=== PATIENT | female | born 1960 | race Caucasian/White ===

== ENCOUNTER 2019-03-02 11:19 | Emergency (ER) | payer OTHER ==
[~2019-03-02] VITALS: Ht 160 cm; Wt 51.7 kg
[~2019-03-02 11:19] MED LIST: ACYC800 PO; CYCL10 PO; ESTR1 PO; HERBS; HYDACE5 PO; LEVO750 PO; MELA3; OPTLUBOPOA OS; OXYACE5T PO; PRED20 PO; SULTRIDS PO; TRAZ100 PO
[2019-03-02] MEDS ORDERED: Prinivil10 MG PO (11:25)
[2019-03-02 11:50] LABS: BASOPHILS PERCENT AUTO 0 % (0-2); EOSINOPHILS PERCENT AUTO 0 % (0-6); Hematocrit 45.8 % (33.0-51.0); Hemoglobin 14.8 g/dL (11.5-16.0); IMMATURE GRAN ABSOLUTE AUTO 0.02 K/mm3 (0.00-0.10); IMMATURE GRAN PERCENT AUTO 0 % (0-1); LYMPHOCYTES PERCENT AUTO 13 % (21-46); MONOCYTES ABSOLUTE AUTO 0.36 K/mm3 (0.16-1.47); MONOCYTES PERCENT AUTO 5 % (4-13); Mean Corpuscular HGB 31.5 pg (26.0-34.0); Mean Corpuscular HGB Conc 32.3 g/dL (31.5-36.5); Mean Corpuscular Volume 97 fL (80-100); NEUTROPHILS ABSOLUTE AUTO 5.86 K/mm3 (1.96-9.15); NEUTROPHILS PERCENT AUTO 82 % (41-73); Platelet Count 247 K/mm3 (150-400); RDW Standard Deviation 43.6 fL (35.1-46.3); White Blood Cell Count 7.14 K/mm3 (4.00-11.30)
[2019-03-02] MEDS ORDERED: NP THYROID30 MG PO (12:08)
[2019-03-02] MEDS ORDERED: BUSP15 PO (12:09)
[2019-03-02] MEDS ORDERED: BACL10 PO (12:09)
[2019-03-02] MEDS ORDERED: Norco 10-325 T1 EACH PO (12:10)
[2019-03-02 12:17] LABS: Alanine Aminotransfer (ALT/SGP 20 U/L (12-78); Albumin, Blood 4.2 g/dL (3.4-5.0); Albumin/Globulin Ratio 1.1 (0.8-1.8); Alk Phos 65 U/L (50-136); Anion Gap 6 mmol/L (6-16); Aspartate Aminotrans (AST/SGOT 19 U/L (12-37); Bilirubin, Total 0.3 mg/dL (0.1-1.0); Blood Urea Nitrogen 11 mg/dL (8-24); Bun/Creatinine Ratio 19.3 (12.0-20.0); CO2, Blood 26 mmol/L (21-32); Calcium, Blood 8.9 mg/dL (8.5-10.1); Chloride, Blood 107 mmol/L (98-108); Creatinine, Blood 0.57 mg/dL (0.40-1.00); Globulin, Blood 3.7 g/dL (2.2-4.0); Glomerular Filtration Rate >60 (60-); Glucose, Blood 100 mg/dL (70-99); Magnesium, Blood 2.4 mg/dL (1.6-2.4); Potassium, Blood 4.2 mmol/L (3.5-5.5); Sodium, Blood 139 mmol/L (136-145); Total Protein, Blood 7.9 g/dL (6.4-8.2); Troponin I <0.015 ng/mL (0.000-0.040)
== END 2019-03-02 13:20 | disposition home or self-care (01) ==
LOC: ER 11:19
PROVIDERS: Physician Assistant
DX: R07.89 Other chest pain (principal); I10 Essential (primary) hypertension; F17.200 Nicotine dependence, unspecified, uncomplicated; Z79.899 Other long term (current) drug therapy
CPT/HCPCS: 36415; 71046; 80053; 83735; 83880; 84484; 85025; 93005; 93010

== ENCOUNTER 2019-10-28 07:08 | Emergency (ER) | payer OTHER ==
[~2019-10-28] VITALS: Ht 157.5 cm; Wt 49.4 kg
[~2019-10-28 07:08] MED LIST changes: +BACL10 PO; +BUSP15 PO; +LISI20 PO; +NP THYROID30 MG PO; +Norco 10-325 T1 EACH PO
[2019-10-28 07:44] LABS: BASOPHILS ABSOLUTE AUTO 0.01 K/mm3 (0.00-0.23); BASOPHILS PERCENT AUTO 0 % (0-2); EOSINOPHILS ABSOLUTE AUTO 0.13 K/mm3 (0.00-0.68); EOSINOPHILS PERCENT AUTO 2 % (0-6); Hemoglobin 14.4 g/dL (11.5-16.0); IMMATURE GRAN ABSOLUTE AUTO 0.02 K/mm3 (0.00-0.10); IMMATURE GRAN PERCENT AUTO 0 % (0-1); LYMPHOCYTES ABSOLUTE AUTO 1.96 K/mm3 (0.84-5.20); LYMPHOCYTES PERCENT AUTO 28 % (21-46); MONOCYTES ABSOLUTE AUTO 0.64 K/mm3 (0.16-1.47); MONOCYTES PERCENT AUTO 9 % (4-13); Mean Corpuscular HGB 31.6 pg (26.0-34.0); Mean Corpuscular Volume 99 fL (80-100); Mean Platelet Volume 10.1 fL (9.1-12.4); NEUTROPHILS ABSOLUTE AUTO 4.36 K/mm3 (1.96-9.15); NEUTROPHILS PERCENT AUTO 61 % (41-73); Platelet Count 194 K/mm3 (150-400); RDW Coefficient Variation 12.5 % (11.7-14.2); RDW Standard Deviation 45.8 fL (35.1-46.3); Red Blood Cell Count 4.55 M/mm3 (3.80-5.20); White Blood Cell Count 7.12 K/mm3 (4.00-11.30)
[2019-10-28 07:59] LABS: Alanine Aminotransfer (ALT/SGP 15 U/L (12-78); Albumin, Blood 4.2 g/dL (3.4-5.0); Albumin/Globulin Ratio 1.1 (0.8-1.8); Alk Phos 65 U/L (50-136); Anion Gap 3 mmol/L (6-16); Aspartate Aminotrans (AST/SGOT 20 U/L (12-37); Bilirubin, Total 0.2 mg/dL (0.1-1.0); Blood Urea Nitrogen 15 mg/dL (8-24); Bun/Creatinine Ratio 21.1 (12.0-20.0); CO2, Blood 31 mmol/L (21-32); Calcium, Blood 9.2 mg/dL (8.5-10.1); Chloride, Blood 103 mmol/L (98-108); Creatinine, Blood 0.71 mg/dL (0.40-1.00); Globulin, Blood 3.7 g/dL (2.2-4.0); Glomerular Filtration Rate >60 (60-); Glucose, Blood 90 mg/dL (70-99); Potassium, Blood 4.4 mmol/L (3.5-5.5); Sodium, Blood 137 mmol/L (136-145); Total Protein, Blood 7.9 g/dL (6.4-8.2); Troponin I <0.015 ng/mL (0.000-0.040)
[2019-10-28] MEDS ORDERED: IBUP600 PO (08:12)
[2019-10-29] MEDS ORDERED: Roxicodone5 MG PO (22:13)
== END 2019-10-28 08:25 | disposition home or self-care (01) ==
LOC: ER 07:08
PROVIDERS: Emergency Medicine
DX: R07.81 Pleurodynia (principal); F17.200 Nicotine dependence, unspecified, uncomplicated; Z79.899 Other long term (current) drug therapy
CPT/HCPCS: 36415; 71046; 80053; 84484; 85025; 85379; 93005; 93010; 96374; 99284-25; J1885

== ENCOUNTER 2019-10-29 20:10 | Emergency (ER) | payer OTHER ==
[~2019-10-29] VITALS: Ht 157.5 cm; Wt 49.4 kg
[~2019-10-29 20:10] MED LIST changes: +IBUP600 PO
[2019-10-29 21:05] LABS: BASOPHILS ABSOLUTE AUTO 0.01 K/mm3 (0.00-0.23); BASOPHILS PERCENT AUTO 0 % (0-2); EOSINOPHILS PERCENT AUTO 2 % (0-6); Hematocrit 43.4 % (33.0-51.0); Hemoglobin 13.8 g/dL (11.5-16.0); IMMATURE GRAN ABSOLUTE AUTO 0.03 K/mm3 (0.00-0.10); IMMATURE GRAN PERCENT AUTO 0 % (0-1); LYMPHOCYTES ABSOLUTE AUTO 1.47 K/mm3 (0.84-5.20); LYMPHOCYTES PERCENT AUTO 14 % (21-46); MONOCYTES PERCENT AUTO 7 % (4-13); Mean Corpuscular HGB 31.7 pg (26.0-34.0); Mean Corpuscular HGB Conc 31.8 g/dL (31.5-36.5); Mean Corpuscular Volume 100 fL (80-100); NEUTROPHILS ABSOLUTE AUTO 7.82 K/mm3 (1.96-9.15); NEUTROPHILS PERCENT AUTO 76 % (41-73); Platelet Count 248 K/mm3 (150-400); RDW Coefficient Variation 12.3 % (11.7-14.2); Red Blood Cell Count 4.35 M/mm3 (3.80-5.20); White Blood Cell Count 10.23 K/mm3 (4.00-11.30)
[2019-10-29 21:06] LABS: Source, Urine Catheter
[2019-10-29 21:09] LABS: Appearance, Urine Clear (Clear); Bilirubin, Urine Neg (Neg); Blood, Urine Neg (Neg); Color, Urine Yellow (P-Yellow); Glucose Qualitative, Urine Neg (Neg); Ketones, Urine 1+ (Neg); Leukocyte Esterase, Urine 1+ (Neg); Nitrite, Urine Neg (Neg); Protein, Urine 1+ (Neg); Urobilinogen, Urine NORM (Normal)
[2019-10-29 21:21] LABS: International Normalized Ratio 0.94
[2019-10-29 21:22] LABS: Alanine Aminotransfer (ALT/SGP 16 U/L (12-78); Albumin, Blood 4.2 g/dL (3.4-5.0); Albumin/Globulin Ratio 1.1 (0.8-1.8); Alk Phos 65 U/L (50-136); Anion Gap 4 mmol/L (6-16); Aspartate Aminotrans (AST/SGOT 19 U/L (12-37); Bilirubin, Total 0.3 mg/dL (0.1-1.0); Blood Urea Nitrogen 23 mg/dL (8-24); Bun/Creatinine Ratio 26.7 (12.0-20.0); CO2, Blood 31 mmol/L (21-32); Calcium, Blood 8.8 mg/dL (8.5-10.1); Chloride, Blood 104 mmol/L (98-108); Creatinine, Blood 0.86 mg/dL (0.40-1.00); Globulin, Blood 3.7 g/dL (2.2-4.0); Glomerular Filtration Rate >60 (60-); Glucose, Blood 91 mg/dL (70-99); Potassium, Blood 4.9 mmol/L (3.5-5.5); Sodium, Blood 139 mmol/L (136-145); Total Protein, Blood 7.9 g/dL (6.4-8.2)
[2019-10-29 21:28] LABS: Red Blood Cells, Urine Rare /hpf (0-2); Squamous Epithelial Cells Rare /hpf (Few)
[2019-10-29 21:29] LABS: Bacteria Few /hpf
[2019-10-29] MEDS ORDERED: Roxicodone5 MG PO (22:13)
[2019-10-29 22:58] LABS: Influenza A Negative (NEGATIVE); Influenza B Negative (NEGATIVE)
== END 2019-10-29 22:24 | disposition home or self-care (01) ==
LOC: ER 20:10
PROVIDERS: Physician Assistant
DX: R09.1 Pleurisy (principal); I10 Essential (primary) hypertension; J44.9 Chronic obstructive pulmonary disease, unspecified; E03.9 Hypothyroidism, unspecified; F17.210 Nicotine dependence, cigarettes, uncomplicated; Z79.899 Other long term (current) drug therapy
CPT/HCPCS: 36415; 71260; 80053; 81001; 83605; 85025; 85610; 85730; 87040; 87086; 87804; 93005; 93010; 96374-59; 96375-59; 99284-25; A9270; J1170; J1885; Q9967

== ENCOUNTER → 2019-11-17 | Outpatient (CLI) | payer OTHER ==
[~2019-11-17] MED LIST changes: +Roxicodone5 MG PO
[2019-11-18 13:26] LABS: Stool Occult Bld Immuno 1 Negative (NEGATIVE)
== END | disposition home or self-care (01) ==
LOC: LAB SHORT 09:00 → LAB 09:00
PROVIDERS: Nurse Practitioner Family
DX: Z12.11 Encounter for screening for malignant neoplasm of colon (principal)
CPT/HCPCS: G0328

== ENCOUNTER 2020-01-25 23:38 | Emergency (ER) | payer OTHER ==
[~2020-01-25] VITALS: Ht 162.6 cm; Wt 50.8 kg
== END 2020-01-26 01:55 | disposition left against medical advice (07) ==
LOC: ER 23:38
DX: Z53.21 Procedure and treatment not carried out due to patient leaving prior to being seen by health care provider (principal)

== ENCOUNTER 2020-04-20 22:07 | Emergency (ER) | payer OTHER ==
[~2020-04-20] VITALS: Ht 160 cm; Wt 53.5 kg
== END 2020-04-21 01:34 | disposition home or self-care (01) ==
LOC: ER 22:07
DX: R07.81 Pleurodynia (principal); I10 Essential (primary) hypertension; E03.9 Hypothyroidism, unspecified; F17.210 Nicotine dependence, cigarettes, uncomplicated; Z88.6 Allergy status to analgesic agent; Z79.899 Other long term (current) drug therapy
CPT/HCPCS: 96372; 99283; J1885

== ENCOUNTER → 2022-02-25 | Outpatient (CLI) | payer OTHER ==
[2022-02-25 15:43] LABS: Calcium, Urine <5.0 mg/dL (< 17.5); Calcium, Urine Calculation Unable to Calculate mg/24hrs (42.0-353.0)
[2022-02-25 15:47] LABS: Creatinine Urine 49.6 mg/dL (27.00-270.00)
== END ==
LOC: LAB SHORT 09:17 → LAB 09:17
PROVIDERS: Internal Medicine Endocrinology, Diabetes & Metabolism
DX: M81.0 Age-related osteoporosis without current pathological fracture (principal)
CPT/HCPCS: 81050; 82340; 82570

== ENCOUNTER 2023-10-28 14:19 | Inpatient (IN) | payer OTHER ==
[~2023-10-28] VITALS: Ht 157.5 cm; Wt 50.8 kg
[2023-10-28 14:55] LABS: BASOPHILS ABSOLUTE AUTO 0.01 K/mm3 (0.00-0.23); BASOPHILS PERCENT AUTO 0 % (0-2); EOSINOPHILS PERCENT AUTO 0 % (0-6); Hematocrit 41.7 % (33.0-51.0); Hemoglobin 13.1 g/dL (11.5-16.0); IMMATURE GRAN ABSOLUTE AUTO 0.05 K/mm3 (0.00-0.10); IMMATURE GRAN PERCENT AUTO 0 % (0-1); LYMPHOCYTES ABSOLUTE AUTO 0.48 K/mm3 (0.84-5.20); LYMPHOCYTES PERCENT AUTO 3 % (21-46); MONOCYTES ABSOLUTE AUTO 0.46 K/mm3 (0.16-1.47); MONOCYTES PERCENT AUTO 3 % (4-13); Mean Corpuscular HGB 31.9 pg (26.0-34.0); Mean Corpuscular HGB Conc 31.4 g/dL (31.5-36.5); Mean Corpuscular Volume 102 fL (80-100); Mean Platelet Volume 10.6 fL (9.1-12.4); NEUTROPHILS ABSOLUTE AUTO 14.66 K/mm3 (1.96-9.15); NEUTROPHILS PERCENT AUTO 94 % (41-73); Platelet Count 211 K/mm3 (150-400); RDW Coefficient Variation 13.3 % (11.7-14.2); RDW Standard Deviation 49.6 fL (35.1-46.3); Red Blood Cell Count 4.11 M/mm3 (3.80-5.20); White Blood Cell Count 15.66 K/mm3 (4.00-11.30)
[2023-10-28 15:13] LABS: Albumin, Blood 3.3 g/dL (3.4-5.0); Albumin/Globulin Ratio 0.7 (0.8-1.8); Bilirubin, Total 0.2 mg/dL (0.1-1.0); Bun/Creatinine Ratio 24.2 (12.0-20.0); Calcium, Blood 8.8 mg/dL (8.5-10.1); Creatinine, Blood 1.32 mg/dL (0.40-1.00); Globulin, Blood 4.6 g/dL (2.2-4.0); Potassium, Blood 3.3 mmol/L (3.5-5.5); Total Protein, Blood 7.9 g/dL (6.4-8.2)
[2023-10-28 17:17] LABS: Source, Urine Clean Catch
[2023-10-28 17:32] LABS: Appearance, Urine Cloudy (Clear); Bilirubin, Urine Neg (Neg); Blood, Urine 5+ (Neg); Color, Urine Yellow (P-Yellow); Glucose Qualitative, Urine Neg (Neg); Ketones, Urine Neg (Neg); Leukocyte Esterase, Urine 2+ (Neg); Nitrite, Urine Neg (Neg); Protein, Urine 2+ (Neg); Specific Gravity, Urine 1.015 (1.003-1.022); Urobilinogen, Urine NORM (Normal)
[2023-10-28 17:38] LABS: Base Excess Venous 2.1 mmol/L; Bicarbonate Venous 25.2 mmol/L (24.0-30.0); PCO2 Venous 62.5 mmHg (38-42)
[2023-10-28 17:39] LABS: pH Blood Venous 7.27 (7.34-7.37)
[2023-10-28 17:51] LABS: Red Blood Cells, Urine 25-50 /hpf (0-2)
[2023-10-28 17:52] LABS: Amorphous Mod (0-Heavy); Bacteria Many /hpf; Mucus Light (0-Heavy); Squamous Epithelial Cells Mod /hpf (Few); Transitional Epithelial Cells Rare /hpf (0-Rare)
[2023-10-28 18:05] LABS: Human Rhinovirus/Enterovirus Detected (NOT DETECT)
[2023-10-28 18:06] LABS: Adenovirus Not Detected (NOT DETECT); Bordetella pertussis Not Detected (NOT DETECT); Chlamydophila pneumoniae Not Detected (NOT DETECT); Coronavirus 229E Not Detected (NOT DETECT); Coronavirus HKU1 Not Detected (NOT DETECT); Coronavirus NL63 Not Detected (NOT DETECT); Coronavirus OC43 Not Detected (NOT DETECT); Human Metapneumovirus Not Detected (NOT DETECT); Influenza A/2009-H1 Not Detected (NOT DETECT); Influenza A/H1 Not Detected (NOT DETECT); Influenza A/H3 Not Detected (NOT DETECT); Influenza B Not Detected (NOT DETECT); Mycoplasma pneumoniae Not Detected (NOT DETECT); Parainfluenza Virus 1 Not Detected (NOT DETECT); Parainfluenza Virus 2 Not Detected (NOT DETECT); Parainfluenza Virus 3 Not Detected (NOT DETECT); Parainfluenza Virus 4 Not Detected (NOT DETECT); Respiratory Syncytial Virus Not Detected (NOT DETECT); SARS-Cov-2 (COVID-19), BioFire Not Detected (NOT DETECT)
[2023-10-28 18:35] LABS: Magnesium, Blood 2.6 mg/dL (1.6-2.4); Phosphorus, Blood 3.6 mg/dL (2.5-4.9)
[2023-10-28 20:45] VITALS: BP 120/55
[2023-10-29 00:15] VITALS: BP 133/60
[2023-10-29 03:00] VITALS: BP 116/64
--- NOTE | 2023-10-29 05:01 | NUR ---
END OF SHIFT NOTE: PT MORE ALERT THAN ON ARRIVAL TO PCU. IRRITABLE AT TIMES, NOT COOPERATIVE W/ MAJORITY OF CARE. ORIENTED X4. THIS RN HAS PROVIDED EXTENSIVE AMOUNTS OF EDUCATION REGARDING BIPAP ADHERENCE, IV K+ REPLACEMENT, AND OXYGEN SUPPLEMENTATION; PT HAS RAISED HER VOICE AT STAFF ON MULTIPLE OCCASIONS STATING: "GET THIS THING OUT OF MY ARM, NOW!" WHEN REFERRING TO HER IV, "THIS MASK IS SUFFOCATING ME, GET IT OFF MY FACE" WHEN REFERRING TO HER BIPAP MASK, "I HAVE NEVER BEEN THIS UNCOMFORTABLE IN THE HOSPITAL, EVER" W/ FOLLOW UP OF "MY WHOLE ARM IS BURNING, I'M SO COLD, AND I WANT THIS THING (MASK) OFF MY FACE." WHEN ADVISING THE PT THAT THIS RN DECREASED K+ INFUSION RATE AND IS CONCURRENTLY RUNNING W/ NS FOR COMFORT, PT ASKS "DID YOU ACTUALLY DO THAT OR ARE YOU JUST TELLING ME THAT YOU DID BUT YOU DIDN'T ACTUALLY?" THIS RN HAS CONTINUED TO EDUCATE PT, PROVIDE WARM BLANKETS, A HEATING PAD, ADJUST IV FOR COMFORT, AND POSITION PT PER HER REQUEST. VITAL SIGNS HAVE REMAINED STABLE SINCE ARRIVAL. HR 80-90 S, NSR ON TELE. BP STABLE, MAP >65. SPO2 >93% ON 3-5L VIA NC. PT INDEPENDENTLY REMOVES BIPAP, DESATS INTO MID-80'S W/O SUPPLEMENTAL O2; RECOVERS ONCE PLACED ON NC. PT W/ THICK, GREEN SPUTUM PRODUCTION; LOOSE, PRODUCTIVE COUGH. REMAINS AFEBRILE. PUREWICK IN PLACE FOR PT COMFORT DUE TO ALTERED MENTATION AND FREQUENT URINATION. NO BM'S THIS SHIFT. FREQUENT C/O BACK PAIN, REQUESTING HOME PAIN MEDICATION. WHEN EDUCATING PT ON ORDERS TO HOLD HOME PAIN MEDICATION, THIS RN DISCUSSED POTENTIAL OVERMEDICATION AT HOME PRIOR TO ARRIVAL TO URGENT CARE & ED. PT STATES "I MAY HAVE TAKEN AN EXTRA PILL BUT I STILL NEED PAIN MEDS. THEY DID NOT CAUSE ALL OF THIS." TYLENOL ADMINISTERED PER EMAR, HEATING PAD IN PLACE. PT PROVIDED W/ EXTRA PILLOWS FOR COMFORT. ABLE TO USE CALL LIGHT TO COMMUNICATE NEEDS. NO OTHER EVENTS. BED IN LOWEST POSITION, ALARM ON FOR PT SAFETY. WILL REPORT TO ONCOMING RN.
[2023-10-29 06:00] LABS: Bun/Creatinine Ratio 32.3 (12.0-20.0); Creatinine, Blood 0.46 mg/dL (0.40-1.00); Potassium, Blood 5.1 mmol/L (3.5-5.5)
--- NOTE | 2023-10-29 07:36 | NUR ---
AM ASSESSMENT PT IS A/O X'S 4, ANSWERS QUESTIONS APPROPRIATLY. O2 SAT 93% ON 3L O2 NC. PT LUNGS COARSE AND DIM IN BASES. PT REPORTS PRODUCTIVE COUGH. DENIES ANY INCREASE IN SOB OR CP. UNABLE TO TOLERATE BIPAP PER PT, TO MUCH FORCE. ALL OTHER VS STABLE.
[2023-10-29 07:38] VITALS: BP 122/57
--- NOTE | 2023-10-29 08:54 | NUR ---
PT UP TO CHAIR SBA FOR MULTIPLE LINES. O2 SAT REMAINED >88% ON 3L O2.
--- NOTE | 2023-10-29 09:50 | NUR ---
PT GIVEN FLUTTER VALVE EDUCATIN BY RT. PT DEMONSTRATED UNDERSTANDING TO THIS RN.
--- NOTE | 2023-10-29 12:22 | NUR ---
PT ASKED FOR HER PURSE, THIS RN NOTICED A THERMOSTATIC CONTROLS SUPERVISOR IN PURSE. RE-EDUCATED PT ON FIRE SAFETY AND IGNITION SOURCES AND THAT I WOULD NEED TO LOCK THERMOSTATIC CONTROLS SUPERVISOR UP UNTIL DC. PT COOPERATIVE AND GAVE RN TWO ADDITIONAL LIGHTERS, VAPE PEN AND PACK OF CIGARETTES. BELONGINGS WERE PLACED IN CLEAR PLASTIC BAG WITH PT LABLE ATTATCHED AND LOCKED IN DRAWER.
--- NOTE | 2023-10-29 13:28 | NUR ---
THIS NURSE RECIEVED REPORT FROM PCU NURSE TONY. AFTER REPORT THIS NURSE HAD NO FURTHER QUESTIONS. PATIENT CAME FROM U IN HER RECLINER CHAIR. SHE IS A&OX4. SHE IS ON 3L NC WITH >90% OXYGEN SATS. SHE HAS HER LEGS ELEVATED IN THE RECLINER AND CALL LIGHT WITHIN REACH.
--- NOTE | 2023-10-29 13:29 | NUR ---
PT TX TO ROOM 229 AT APROX 1329. REPORT GIVEN TO DEVIN JOY. IGNITION SOURCES LOCKED IN DRAWER.
--- NOTE | 2023-10-29 15:31 | NUR ---
SHIFT SUMMARY: PATIENT IS A&OX4. PATIENT CONTINUES TO BE ON 3L NC WITH >90% OXYGEN SATS. DENIES SOB OR CHEST PAIN WHILE BEING ON THE OXYGEN. PAIN IS MANAGED WITH PO PAIN MEDS. SHE IS A SBA TO AMBULATE WITHIN THE ROOM. SHE IS TOLERATING PO INTAKE AND IS VOIDING. PATIENT IS CURRENTLY LAYING IN BED WATCHING TV WITH CALL LIGHT IN REACH.
[2023-10-29 16:00] VITALS: BP 129/62
[2023-10-29] MEDS ORDERED: BACL20 PO (16:51)
[2023-10-29] MEDS ORDERED: HYDACE10B PO (16:51)
[2023-10-29] MEDS ORDERED: LEVSOD100 PO (16:53)
[2023-10-29] MEDS ORDERED: Chantix1 MG PO (16:53)
[2023-10-29] MEDS ORDERED: TRAZ100 PO (16:53)
[2023-10-29] MEDS ORDERED: IBUP600 PO (16:54)
[2023-10-29] MEDS ORDERED: GABA100 PO (16:54)
[2023-10-29] MEDS ORDERED: PROM25 PO (16:55)
[2023-10-29 21:15] VITALS: BP 135/74
[2023-10-30 00:13] VITALS: BP 118/61
[2023-10-30 05:00] VITALS: BP 144/76
[2023-10-30 05:53] LABS: BASOPHILS ABSOLUTE AUTO 0.01 K/mm3 (0.00-0.23); BASOPHILS PERCENT AUTO 0 % (0-2); EOSINOPHILS PERCENT AUTO 0 % (0-6); Hematocrit 37.6 % (33.0-51.0); Hemoglobin 11.9 g/dL (11.5-16.0); IMMATURE GRAN ABSOLUTE AUTO 0.03 K/mm3 (0.00-0.10); IMMATURE GRAN PERCENT AUTO 1 % (0-1); LYMPHOCYTES ABSOLUTE AUTO 0.48 K/mm3 (0.84-5.20); LYMPHOCYTES PERCENT AUTO 8 % (21-46); MONOCYTES ABSOLUTE AUTO 0.22 K/mm3 (0.16-1.47); MONOCYTES PERCENT AUTO 4 % (4-13); Mean Corpuscular HGB 31.9 pg (26.0-34.0); Mean Corpuscular HGB Conc 31.6 g/dL (31.5-36.5); Mean Corpuscular Volume 101 fL (80-100); Mean Platelet Volume 10.5 fL (9.1-12.4); NEUTROPHILS ABSOLUTE AUTO 5.59 K/mm3 (1.96-9.15); NEUTROPHILS PERCENT AUTO 88 % (41-73); Platelet Count 212 K/mm3 (150-400); RDW Coefficient Variation 13.4 % (11.7-14.2); RDW Standard Deviation 49.5 fL (35.1-46.3); Red Blood Cell Count 3.73 M/mm3 (3.80-5.20); White Blood Cell Count 6.33 K/mm3 (4.00-11.30)
--- NOTE | 2023-10-30 06:19 | NUR ---
SHIFT SUMMARY PT IS HERE WITH SEPSIS AND ACUTE RESP FAILURE, LIKELY SECONDARY TO A COPD EXACERBATION. PT IS RECEIVING ABX AND IV STEROIDS FOR A LLL INFILTRATE AND HAS ALSO TESTED POSITIVE FOR THE RHINOVIRUS. PT HAS BEEN ABLE TO STAND, PIVOT, AND GO FOR SHORT DISTANCES INDEPENDENTLY AND WITH SOME SBA WITH LINES AND CORDS FROM THIS RN THIS SHIFT. PT MEDICATED PER EMAR FOR PAIN DURING THE NIGHT. PT ABLE TO GET SOME REST THIS SHIFT, BUT NOT MUCH. VITAL SIGNS HAVE BEEN STABLE. BED IS IN LOWEST POSITION, CALL LIGHT IS WITHIN REACH.
[2023-10-30 06:24] LABS: Bun/Creatinine Ratio 42.6 (12.0-20.0); Calcium, Blood 7.5 mg/dL (8.5-10.1); Creatinine, Blood 0.4 mg/dL (0.40-1.00)
[2023-10-30 07:35] VITALS: BP 143/66
--- NOTE | 2023-10-30 11:43 | NUR ---
IV INFLILTRATED. PT TO BE DC'D TODAY. NO NEW IV INSERTION NEEDED.
[2023-10-30] MEDS ORDERED: VISBIOME 112.51 EACH PO (14:51)
[2023-10-30] MEDS ORDERED: ALBU90OI INH (14:51)
[2023-10-30] MEDS ORDERED: CEFP200 PO (14:53)
[2023-10-30] MEDS ORDERED: Prednisone10 MG PO (14:54)
--- NOTE | 2023-10-30 16:07 | NUR ---
DISCHARGE PT DISCHARGED HOME FROM UNIT AT APROX 1532. PT GIVEN WRITTEN AND VERBAL DC INSTRUCTIONS AND VERBALIZED UNDERSTANDING. IV REMOVED. TOLERATED WELL. HOME O2 DELIVERED TO ROOM AND PLACED ON PT AND EDUCATED ON HOW TO USE, PT VERBALIZED AND DEMONSTRATED UNDERSTANDING. RX'S WERE PICKED UP BY FAMILY PRIOR TO DC. WC TO CAR.
== END 2023-10-30 15:57 | disposition home or self-care (01) | DRG 871 ==
LOC: ER 14:19 → PCU 17:56 → SURS 10-29 13:25
PROVIDERS: Emergency Medicine; Internal Medicine; Student in an Organized Health Care Education/Training Program; ADMIT Internal Medicine
DX: A41.9 Sepsis, unspecified organism (principal); G92.8 Other toxic encephalopathy; J96.01 Acute respiratory failure with hypoxia; J96.02 Acute respiratory failure with hypercapnia; J12.89 Other viral pneumonia; N17.9 Acute kidney failure, unspecified; R65.20 Severe sepsis without septic shock; Z11.52 Encounter for screening for COVID-19; J43.9 Emphysema, unspecified; I10 Essential (primary) hypertension; F41.9 Anxiety disorder, unspecified; E03.9 Hypothyroidism, unspecified; F17.210 Nicotine dependence, cigarettes, uncomplicated; B97.10 Unspecified enterovirus as the cause of diseases classified elsewhere; B97.89 Other viral agents as the cause of diseases classified elsewhere; R73.9 Hyperglycemia, unspecified; T38.0X5A Adverse effect of glucocorticoids and synthetic analogues, initial encounter; G89.29 Other chronic pain; M54.9 Dorsalgia, unspecified; E87.6 Hypokalemia; I95.9 Hypotension, unspecified; Z88.6 Allergy status to analgesic agent; Z86.711 Personal history of pulmonary embolism; Z98.1 Arthrodesis status; Z79.890 Hormone replacement therapy; Z79.891 Long term (current) use of opiate analgesic
CPT/HCPCS: 0202U; 36415; 71045; 80048; 80053; 81001; 82803; 82947; 83605; 83735; 84100; 84145; 84443; 85025; 87086; 93005; 93010; 94640; 94660; 94664; 94760; 94761; 94762; 96361; 96365; 96375; 99285-25; A9270; C9113; J0456; J0696; J1650; J2930; J3480; J7030; J7050